=== PATIENT | male | born 1975 | race Caucasian/White ===

== ENCOUNTER 2016-11-10 20:10 | Emergency (ER) | payer MEDICAID ==
[2016-11-10 21:52] VITALS: BP 118/72
== END 2016-11-10 21:52 | disposition home or self-care (01) ==
LOC: ED 20:10
DX: S46.911A Strain of unspecified muscle, fascia and tendon at shoulder and upper arm level, right arm, initial encounter (principal); W18.30XA Fall on same level, unspecified, initial encounter; Y93.89 Activity, other specified; Y99.8 Other external cause status; Y92.89 Other specified places as the place of occurrence of the external cause